=== PATIENT | male | born 1985 | race Caucasian/White ===

== ENCOUNTER 2021-01-29 09:52 | Emergency (ER) | payer OTHER, SELFPAY ==
[2021-01-29 09:53] VITALS: BP 143/83; PULSE 83; RESP 16; TEMP 35.4; O2SAT 100; BMI 23.6
[2021-01-29 10:16] VITALS: O2SAT 97
--- NOTE | 2021-01-29 10:16 | EKG12_ITS ---
Test Reason : CP Blood Pressure : / mmHG Vent. Rate : 067 BPM Atrial Rate : 067 BPM P-R Int : 130 ms QRS Dur : 106 ms QT Int : 370 ms P-R-T Axes : 078 063 069 degrees QTc Int : 390 ms Normal sinus rhythm with sinus arrhythmia Normal ECG Confirmed by KAMERON ROPER, ABRAHAN ([id number]), international editorial producer HILLARY KIM ([id number]) on 02/01/2021 10:49:09 AM Referred By: NADIRA Confirmed By:ABRAHAN MELO MD
--- NOTE | 2021-01-29 10:24 | RAD_ITS ---
STUDY: X-RAY CHEST REASON FOR EXAM: Male, 36 years old. Chest pain TECHNIQUE: Single AP portable view of the chest. COMPARISON: Comparison is made with prior study dated 09/11/2012. FINDINGS: EKG electrodes are seen. The lungs are clear and expanded. There is no demonstrated pleural abnormality. Normal size heart. Normal mediastinum and celia. Normal visualized pulmonary arteries. Normal visualized aortic arch and descending thoracic aorta. Normal visualized thoracic spine. Normal visualized ribs, clavicles, and shoulders. There is no demonstrated abnormality of the visualized soft tissue structures of the upper abdomen. RAD/Chest 1 View (Portable) IMPRESSION: Normal x-ray examination of the chest. Electronically Signed: Marv Arceo MD at 11:12 EST , Service support ,
[2021-01-29 10:27] LABS: Absolute Lymphocyte Count 1.58 X10^3/uL (0.83-4.51); Absolute Neutrophil Count 3.7 X10^3/uL (2.0-7.7); Basophil# 0.03 X10^3/uL; Basophil% 0.5 % (0-1); Eosinophils% 1.6 % (0-5); Hemoglobin 14.3 g/dL (13.0-16.5); Lymphocyte # 1.58 X10^3/ul (0.83-4.51); Lymphocyte % 25.5 % (19-41); Mean Corp Hgb Conc 34.9 g/dL (32-36); Mean Corpuscular Hgb 34.8 pg (27.0-32.0); Mean Corpuscular Volume 99.8 fL (80-94); Mean Platelet Vol. 9.8 fl (6.2-12.0); Monocyte# 0.78 X10^3/uL; Monocyte% 12.6 % (0-10); NRBC Flagged by Analyzer 0 % (0-5); Neutrophil # 3.69 X10^3/uL (2.7-7.7); Neutrophil % 59.5 % (47-70); Platelet Count 303 K/mm3 (150-450); RBC Distribution Width CV 12.3 % (11.6-14.6); RBC Distribution Width SD 45.5 fl (35.1-43.9); Red Blood Count 4.11 M/mm3 (4.6-6.2); White Blood Count 6.2 K/mm3 (4.4-11.0)
[2021-01-29 10:43] LABS: Anion Gap 5 (5-15); BUN 9 mg/dL (7-18); BUN/Creat Ratio 11.4 RATIO (10-20); Calcium,Total 9.1 mg/dL (8.5-10.1); Chloride 109 mmol/L (98-107); Creatinine, Serum 0.79 mg/dL (0.70-1.30); EST Glomerular Filtration Rate 118 mL/min (>60); Est Glom Filt Rate - Afr Amer 143 mL/min (>60); Estimated Creatinine Clearance 125.06 ml/min; Glucose 92 mg/dL (74-106); Potassium 4.2 mmol/L (3.5-5.1); Sodium Level 141 mmol/L (136-145); Troponin-I HS < 3 pg/mL (3.0-78.0)
--- NOTE | 2021-01-29 10:52 | EDS_ITS ---
HPI History of Present Illness Chief Complaint: Chest Other Narrative Narrative: 36-year-old male presenting with left-sided lower rib pain which has been constant for a week. He states it does hurt to touch. He states that he is not short of breath but when he takes a deep breath it hurts in the ribs. No cardiac history. No DVT/PE history and no risk factors. Patient states he has a very physical job, but he does not remember any point where he had direct trauma or something that made his chest wall hurt. He denies fever, chills. He admits to a cough but it has been 2 weeks. No body aches no loss of taste or smell. No nausea or vomiting. PFSH PFSH Medical History no medical history Home Medications hydrocodone-acetaminophen 1 tab PO Q4H PRN PRN #12 tablet 11/13/16 [Rx Last Taken Unknown] naproxen 500 mg PO BID #20 tab 11/13/16 [Rx Last Taken Unknown] penicillin V potassium 500 mg PO 4X/DAY #28 tab 11/13/16 [Rx Last Taken Unknown] lidocaine 1 patch TOPICAL DAILY PRN #1 ea 01/29/21 [Rx Last Taken Unknown] naproxen 500 mg PO BID PRN #20 tab 01/29/21 [Rx Last Taken Unknown] Allergy/AdvReac Type Severity Reaction Status Date / Time Sulfa (Sulfonamide Allergy Unknown Verified 01/29/21 09:55 Antibiotics) Social History Smoking Status: Current every day smoker tobacco type: cigarettes ROS ROS ED Constitutional Constitutional ED: Denies chills, fever(s) or sweats Eyes Eyes: Denies blurry vision or change in vision ENT ENT ED: Denies rhinorrhea or sore throat Cardiovascular Cardiovascular: Reports as per HPI Respiratory/Chest Respiratory/Chest: Denies cough or dyspnea Gastrointestinal Gastrointestinal: Denies abdominal pain or nausea Genitourinary Genitourinary ED: Denies dysuria or hematuria Musculoskeletal Musculoskeletal: Denies arthralgias, back pain, myalgias or neck pain Integumentary Denies abscess or rash Neurologic Neurologic: Denies headache(s), paresthesias or weakness Psychiatric Psychiatric: Denies anxiety or depression EXAM Physical Exam Const Vital Signs: 01/29/21 09:53 01/29/21 10:16 Temperature 95.7 F L Temperature Source Oral Pulse Rate 83 Respiratory Rate 16 Blood Pressure 143/83 H Blood Pressure Mean 103 Pulse Ox 100 97 Oxygen Delivery Method Room Air Room Air Positive well nourished General Appearance ED: NAD; Negative for pallor HEENT Reports moist mucous membranes normocephalic and atraumatic Eyes PERRL and EOMs intact bilaterally Neck no lymphadenopathy and supple Chest Wall Chest Narrative: Tenderness palpation of the left lower ribs in the anterior axillary line. No crepitance or deformity. Equal symmetric breath sounds and chest wall rise. Resp normal respiratory effort and clear to auscultation bilaterally Auscultation: Negative for rales, wheezes or diminished lung sounds Cardio regular rate and regular rhythm Extremity normal to inspection General Extremety ED: Negative for edema or tenderness General Extremity: Negative for edema Neuro oriented x3 Sensorium / Orientation: awake and alert Psych mental status grossly normal Skin no rashes or lesions noted General Skin Exam: Negative for jaundice or pallor Heart Score History: Slightly/Non-Suspicious ECG: Normal Age: </= 45 years Risk Factors: No Risk Factors Troponin: </= Normal Limit Score: 0 MDM MDM MDM Narrative Medical decision making narrative: Patient presenting with left lower chest wall pain which is been present for a week. He is EKG on my interpretation shows a normal sinus rhythm with a ventricular rate of 67 bpm without sign of ischemic change. CBC shows no leukocytosis. Hemoglobin hematocrit are stable. Renal f unction electrolytes are normal. High-sensitivity troponin is less than 3 and therefore rules him out for ACS since it has been ongoing for a week. Chest x- ray on my interpretation shows no acute cardiopulmonary process. The radiologist does agree. Patient is given Toradol and a Lidoderm patch for his left rib pain. He feels improved afterwards. Patient will be prescribed Naprosyn and Lidoderm patches for home. He is counseled to return if he has any new or worsening symptoms. He is given follow-up with Dr. Mora. Impression: 1. Chest pain noncardiac Lab Data Labs: Laboratory Results - last 24 hr 01/29/21 01/29/21 10:10 10:10 WBC 6.2 RBC 4.11 L Hgb 14.3 Hct 41.0 MCV 99.8 H MCH 34.8 H MCHC 34.9 RDW Std Deviation 45.5 H RDW Coeff of Almaz 12.3 Plt Count 303 MPV 9.8 Immature Gran % (Auto) 0.300 Neut % (Auto) 59.5 Lymph % (Auto) 25.5 [place] % (Auto) 12.6 H Eos % (Auto) 1.6 Baso % (Auto) 0.5 Absolute Neuts (auto) 3.7 Absolute Lymphs (auto) 1.58 Nucleated RBC % 0 Sodium 141 Potassium 4.2 Chloride 109 H Carbon Dioxide 27.0 Anion Gap 5 BUN 9 Creatinine 0.79 Estim Creat Clear Calc 125.06 Est GFR (MDRD) Af Amer 143 Est GFR (MDRD) Non-Af 118 BUN/Creatinine Ratio 11.4 Glucose 92 Calcium 9.1 Troponin I High Sens < 3 L Radiography Diagnostic Testing: Clinical Impression(s) from Imaging Studies Chest X-Ray 01/29/21 10:24 IMPRESSION: Normal x-ray examination of the chest. Electronically Signed: Marv Arceo MD at 11:12 EST , Service support , Discharge Plan Triage Chief Complaint: Chest Other ED Provider: Louis Ledezma Dx/Rx/DC Orders Instructions: ED Chest Pain, Noncardiac Prescriptions: New naproxen 500 mg tablet 500 mg PO BID PRN (Reason: pain) Qty: 20 RF: 0 lidocaine 5 % adhesive patch,medicated 1 patch topical DAILY PRN (Reason: pain) Qty: 1 RF: 0 No Action hydrocodone-acetaminophen 1 TABLET tablet 1 tab PO Q4H PRN PRN (Reason: Pain) Qty: 12 RF: 0 naproxen 500 MG tablet 500 mg PO BID Qty: 20 RF: 0 penicillin V potassium 500 MG tablet 500 mg PO 4X/DAY Qty: 28 RF: 0 Primary Care Provider: Care Physician,No Primary Referrals: Reynaldo Mora MD [STAFF PHYSICIAN] - As Needed Care Physician,No Primary [Primary Care Provider] - Disposition Disposition: Home, Self Care
[2021-01-29] MEDS: Ketorolac 15 MG/ML Vial IV (11:11)
[2021-01-29] MEDS: Lidocaine 5% Patch 1 PATCH TOPICAL (11:11)
[2021-01-29 11:38] VITALS: BP 127/85; PULSE 75; RESP 14; O2SAT 99
== END 2021-01-29 11:38 | disposition home or self-care (01) ==
PROVIDERS: Emergency Provider Student in an Organized Health Care Education/Training Program
DX: R07.89 Other chest pain (principal); F17.210 Nicotine dependence, cigarettes, uncomplicated; R05.9 Cough, unspecified; I49.8 Other specified cardiac arrhythmias; Z79.1 Long term (current) use of non-steroidal anti-inflammatories (NSAID)
CPT/HCPCS: 71045; 80048; 84484; 85025; 93005; 96374; 99285; A4216

== ENCOUNTER 2021-06-07 02:19 | Emergency (ER) | payer OTHER, SELFPAY ==
[2021-06-07 02:20] VITALS: BP 130/101; PULSE 88; RESP 26; TEMP 36.8; O2SAT 98; BMI 21.2
--- NOTE | 2021-06-07 02:25 | CT_ITS ---
STUDY: CT ABDOMEN AND PELVIS WITHOUT CONTRAST REASON FOR EXAM: Male, 36 years old. Kidney Stone RADIATION DOSAGE (If Supplied By Facility): CTDIvol = ( 5.54 ) mGy, DLP = ( 250.91 ) mGycm TECHNIQUE: Transaxial images were obtained from the dome of the diaphragm to the symphysis pubis without oral contrast, and without intravenous contrast. Sagittal and coronal images were reconstructed. Individualized dose optimization techniques were used for this CT. COMPARISON: Previous CT of 05/21/2014. FINDINGS: The visualized lung bases are unremarkable. The visualized portions of the heart are within normal limits. No coronary artery calcification is seen. Normal liver. Normal gallbladder and extrahepatic biliary system. Normal spleen. Normal pancreas. Normal bilateral adrenal glands. Right kidney is now asymmetrically enlarged and edematous with minimal perirenal stranding. Mild/moderate right hydronephrosis and hydroureter are present. A 2 mm stone is seen within the distal right ureter, just proximal to the UVJ. 2 punctate nonobstructing stones are seen within the left intrarenal collecting system on the coronal images. No left-sided hydronephrosis. Urinary bladder is nearly empty. Normal visualized stomach. Normal small intestine. Normal colon. The appendix is visualized and appears normal. Normal abdominal aorta. Normal inferior vena cava. Normal retroperitoneum. Normal urinary bladder. Prostate gland is not enlarged. Normal abdominal wall. No acute osseous abnormality. CT/Abdomen/Pelvis without Cont IMPRESSION: Mild-moderate right hydronephrosis due to a 2 mm stone within the distal ureter, just proximal to the UVJ. Electronically Signed: Walter Garcia MD at 3:32 EDT ,
--- NOTE | 2021-06-07 02:25 | EDS_ITS ---
HPI History of Present Illness Chief Complaint: Flank Pain Narrative Narrative: Patient presents with sudden onset of right-sided flank pain/back pain radiating towards the front and towards his testicle. He states his symptoms began at 5 PM yesterday approximately 9 hours ago. It was very faint at the time but has intensified since he went to bed at 11 PM. He denies any dysuria or hematuria. No fevers or chills. States he had nausea and vomiting from the pain without any blood in his emesis. He denies any problems with bowel movements. He felt similar to this previously approximately 10 years ago when he had a kidney stone. The pain is only on the right side and radiating towards the front and downward. He cannot find a comfortable position. He denies any exacerbating or alleviating factors. PFSH PFSH Home Medications hydrocodone-acetaminophen 1 tab PO Q6H PRN 3 Days #12 tab 06/07/21 [Rx Last Taken Unknown] ketorolac 10 mg PO TID 5 Days #15 tab 06/07/21 [Rx Last Taken Unknown] tamsulosin [Flomax] 0.4 mg PO QHS #10 cap 06/07/21 [Rx Last Taken Unknown] Allergy/AdvReac Type Severity Reaction Status Date / Time Sulfa (Sulfonamide Allergy Unknown Verified 01/29/21 09:55 Antibiotics) Social History Smoking Status: Current every day smoker tobacco type: cigarettes ROS ROS ED ROS Narrative Constitutional: No fever, no chills. HEENT: No sore throat. No neck pain. No loss of vision. No rhinorrhea. Cardiovascular: No chest pain. No palpitations. No pedal edema. Respiratory: No cough, no shortness of breath. Abdominal: No abdominal pain. No nausea. No vomiting. Genitourinary: No dysuria. No hematuria. Right-sided flank pain with radiation to front and minimally towards testicle. Feels similar to previous kidney stones. Musculoskeletal: No myalgias. No arthralgias. Neurologic: No headaches. No dizziness. No lightheadedness. Skin: No rash. No change in color. Psychiatric: No depression. No anxiety. EXAM Physical Exam Narrative Exam Narrative: Afebrile. Vital signs noted. HEENT: Normocephalic. Atraumatic. PERRL, EOMI. Neck soft and supple. No point tenderness or step off. Cardiovascular: Regular rate and rhythm. No murmurs, rubs, or gallops a ppreciated. Respiratory: No tachypnea. Lungs clear to auscultation bilaterally. Gastrointestinal: Abdomen soft, nontender, with normoactive bowel sounds. No rebound or guarding. No CVA tenderness to percussion. Neurological: Awake. Alert. Nonfocal, nonlateralizing. Skin: No rash. Normal color. No pallor. Musculoskeletal: No pedal edema. Full range of motion extremities. Const Vital Signs: 06/07/21 02:20 06/07/21 03:44 Temperature 98.2 F Temperature Source Temporal Pulse Rate 88 72 Respiratory Rate 26 H 15 Blood Pressure 130/101 H 120/78 Blood Pressure Mean 110 Pulse Ox 98 98 Oxygen Delivery Method Room Air MDM MDM MDM Narrative Medical decision making narrative: Kidney stone work-up was pursued. He was administered normal saline along with ketorolac 30 mg intravenously. He did drive his young, small 2 children here to the emergency department. However, he states he will get a ride home. He was administered morphine 4 mg intravenously. He has slightly elevated white count at 12.3 which I think is nonspecific. Hemoglobin normal at 13.2. Platelet count normal at 310. Sodium low at 131. He was bolused normal saline. Creatinine normal at 1.0. Urinalysis shows occult blood 250 along with RBCs 25-50 but WBCs 0-5, within normal limits. I do not feel antibiotics are indicated. CT of the abdomen and pelvis does show mild to moderate hydronephrosis of the right kidney secondary to a 2 mm stone that is almost at the UVJ. At this point in time, I feel he can be discharged safely home with follow-up to urology. He was returned to Dr. Ledezma. He was given prescriptions for 3 days of Vicodin, for 5 days worth of Toradol, and for Flomax. Return instructions to the emergency department were reviewed. Disposition is discharged home in stable condition. Lab Data Attestation: I reviewed the patient's lab results. Labs: Laboratory Results - last 24 hr 06/07/21 06/07/21 06/07/21 02:25 02:25 02:35 WBC 12.3 H RBC 3.80 L Hgb 13.2 Hct 38.0 L MCV 100.0 H MCH 34.7 H MCHC 34.7 RDW Std Deviation 42.9 RDW Coeff of Almaz 11.7 Plt Count 310 MPV 9.5 Immature Gran % (Auto) 0.300 Neut % (Auto) 57.0 Lymph % (Auto) 29.0 [place] % (Auto) 11.1 H Eos % (Auto) 2.2 Baso % (Auto) 0.4 Absolute Neuts (auto) 7.0 Absolute Lymphs (auto) 3.55 Nucleated RBC % 0 Sodium 131 L Potassium 3.8 Chloride 99 Carbon Dioxide 24.0 Anion Gap 8 BUN 15 Creatinine 1.02 Estim Creat Clear Calc 95.16 Est GFR (MDRD) Af Amer 106 Est GFR (MDRD) Non-Af 88 BUN/Creatinine Ratio 14.7 Glucose 110 H Calcium 8.4 L Urine Color Yellow Urine Clarity Sl Cloudy Urine pH 5.0 Ur Specific [place] 1.025 Urine Protein 30 H Urine Glucose (UA) Normal Urine Ketones 5 H Urine Occult Blood 250 H Urine Nitrite Negative Urine Bilirubin 1 H Urine Urobilinogen 4 H Ur Leukocyte Esterase 25 H Urine RBC 25-50 SEEN Urine WBC 0-5 SEEN Ur Squamous Epith Cells 0 SEEN Urine Bacteria 1+ Urine Mucus 0 SEEN Radiography Diagnostic Testing: Clinical Impression(s) from Imaging Studies Abdomen/Pelvis CT 06/07/21 02:25 IMPRESSION: Mild-moderate right hydronephrosis due to a 2 mm stone within the distal ureter, just proximal to the UVJ. Electronically Signed: Walter Garcia MD at 3:32 EDT , Discharge Plan Triage Chief Complaint: Flank Pain ED Provider: Guillermo Wagner Dx/Rx/DC Orders Clinical Impression: Ureterolithiasis, Ureteral colic Instructions: ED Kidney Stone w/ Colic Prescriptions: New ketorolac 10 mg tablet 10 mg PO TID 5 Days Qty: 15 RF: 0 tamsulosin [Flomax] 0.4 mg capsule 0.4 mg PO QHS Qty: 10 RF: 0 hydrocodone-acetaminophen 5-325 mg tablet 1 tab PO Q6H PRN (Reason: pain) 3 Days Qty: 12 RF: 0 Primary Care Provider: Care Physician,No Primary Referrals: David Ledezma MD [STAFF PHYSICIAN] - 3-5 Days if not improving Care Physician,No Primary [Primary Care Provider] - Disposition Disposition: Home, Self Care
[2021-06-07] MEDS: Ketorolac 30 MG/ML Syringe IV (02:29)
[2021-06-07] MEDS: 0.9% Normal Saline 1,000 ML 250 ML IV (02:30)
[2021-06-07 02:32] LABS: Absolute Lymphocyte Count 3.55 X10^3/uL (0.83-4.51); Basophil# 0.05 X10^3/uL; Basophil% 0.4 % (0-1); Eosinophil# 0.27 X10^3/uL; Eosinophils% 2.2 % (0-5); Hemoglobin 13.2 g/dL (13.0-16.5); Lymphocyte # 3.55 X10^3/ul (0.83-4.51); Mean Corp Hgb Conc 34.7 g/dL (32-36); Mean Corpuscular Hgb 34.7 pg (27.0-32.0); Mean Platelet Vol. 9.5 fl (6.2-12.0); Monocyte# 1.36 X10^3/uL; Monocyte% 11.1 % (0-10); NRBC Flagged by Analyzer 0 % (0-5); Neutrophil # 6.99 X10^3/uL (2.7-7.7); Platelet Count 310 K/mm3 (150-450); RBC Distribution Width CV 11.7 % (11.6-14.6); RBC Distribution Width SD 42.9 fl (35.1-43.9); White Blood Count 12.3 K/mm3 (4.4-11.0)
[2021-06-07 02:37] LABS: Mucous, Urine 0 SEEN /hpf (<or=2+); Squamous Epithelial Cells - UA 0 SEEN /hpf (0-5)
[2021-06-07 02:38] LABS: Glucose, Dipstick Normal (Normal); Ketone-Dipstick 5 mg/dl (Negative); Leukocyte Esterase-Dipstick 25 /ul (Negative); Nitrite-Dipstick Negative (Negative); Occult Blood-Urine 250 /ul (Negative); Protein-Dipstick 30 mg/dl (Negative); Specific Gravity, Urine 1.025 (1.002-1.030); Urine Urobilinogen 4 mg/dl (Normal)
[2021-06-07 02:39] LABS: Color, Urine Yellow (Yellow); Urine Bilirubin Dipstick 1 mg/dL (Negative); Urine Clarity Sl Cloudy (Clear)
[2021-06-07 02:45] LABS: Anion Gap 8 (5-15); BUN 15 mg/dL (7-18); BUN/Creat Ratio 14.7 RATIO (10-20); Calcium,Total 8.4 mg/dL (8.5-10.1); Chloride 99 mmol/L (98-107); Creatinine, Serum 1.02 mg/dL (0.70-1.30); EST Glomerular Filtration Rate 88 mL/min (>60); Est Glom Filt Rate - Afr Amer 106 mL/min (>60); Estimated Creatinine Clearance 95.16 ml/min; Glucose 110 mg/dL (74-106); Potassium 3.8 mmol/L (3.5-5.1); Sodium Level 131 mmol/L (136-145)
[2021-06-07 02:46] LABS: Bacteria 1+ /hpf (None Seen); Red Blood Cells-Urine 25-50 SEEN /hpf (0-5); White Blood Cells 0-5 SEEN /hpf (0-5)
[2021-06-07] MEDS: Morphine 4 MG/ML Syringe IV (02:53)
[2021-06-07 03:44] VITALS: BP 120/78; PULSE 72; RESP 15; O2SAT 98
== END 2021-06-07 06:37 | disposition home or self-care (01) ==
PROVIDERS: Emergency Provider Emergency Medicine; Visit Provider Emergency Medicine
DX: N13.2 Hydronephrosis with renal and ureteral calculous obstruction (principal); N23 Unspecified renal colic; F17.210 Nicotine dependence, cigarettes, uncomplicated
CPT/HCPCS: 74176; 80048; 81001; 85025; 96361; 96374; 96375; 99282; A4216

== ENCOUNTER → 2021-07-09 | Outpatient (CLI) | payer OTHER, SELFPAY | END | disposition home or self-care (01) | LOC: LAB 15:20 | PROVIDERS: Referring Provider Otolaryngology; Visit Provider Otolaryngology | DX: J03.90 Acute tonsillitis, unspecified (principal) | CPT/HCPCS: 87070; 87077 ==

== ENCOUNTER 2022-02-13 18:44 | Emergency (ER) | payer OTHER, SELFPAY ==
[2022-02-13 18:45] VITALS: BP 131/85; PULSE 97; RESP 16; TEMP 36.6; O2SAT 97; BMI 21.1
--- NOTE | 2022-02-13 18:53 | ED.RN ---
FINISHED TRIAGING PT, EXPLAINED THAT THERE WOULD BE A WAIT AND APOLOGIZED. PT STATED I SUPPOSE THERE ARE PEOPLE HERE WITH JUST TOOTHACHES THAT DONT NEED TO BE HERE. PT WENT TO WAITING ROOM BEGAN HARASSING PT'S IN THE WAITING ROOM STATED I NEED TO GO HEAD OF YOU, MY ARM FEELS LIKE ITS GOING TO FALL OFF. PT CONTINUED TO HARASS PT'S AND THERE VISITORS, THIS RN APOLOGIZED FOR THE WAIT BUT EXPLAINED THAT THERE WERE MANY SICK PEOPLE HERE. PT CUSSING AND YELLING AT THIS RN, APOLOGIZED THEY WALKED OUT. THIS RN DID HRO TO INTERVENE.
== END 2022-02-13 18:50 | disposition left against medical advice (07) ==
LOC: ED 19:09
DX: Z53.21 Procedure and treatment not carried out due to patient leaving prior to being seen by health care provider (principal)

== ENCOUNTER 2023-04-03 15:27 | Emergency (ER) | payer SELFPAY ==
[2023-04-03 15:30] VITALS: BP 118/87; PULSE 97; RESP 14; TEMP 36.9; O2SAT 99; BMI 21.9
[2023-04-03] MEDS: Lidocaine 1% (20 ml mdv) 20 ML Vial INFILT (16:34)
--- NOTE | 2023-04-03 17:10 | EDS_ITS ---
HPI History of Present Illness Chief Complaint: Weakness Detail of Chief Complaint: Infection posterior left thigh that started several days ago Informant: patient Onset/Context/Timing Onset: Days Context: Sudden Onset Timing: Continuous Quality: Pain, redness and swelling Location: Posterior proximal left thigh Current Severity: Mild Maximum Severity: Moderate Worsened by: Sitting Relieved by: Nothing Associated Symptoms Associated Symptoms: No constitutional symptoms Narrative Narrative: patient is a 38-year-old male who presents with abscess and cellulitis. He went to urgent care. The practitioner at urgent care with no hot treat his infection. He was referred to the emergency department. He denies fever, chills night sweats. [place] history medic fever, heart murmur mitral valve prolapse. He is not on any immunosuppressive meds. He has no allergies to penicillin or doxycycline. He does report reaction to sulfa. Prior similar symptoms: No Recent Illness/Hospitalization: No PFSH PFSH Home Medications hydrocodone-acetaminophen 5-325mg 5mg-325mg 1 tab PO Q6H PRN pain 3 days #12 tabs 06/07/21 [Rx Last Taken Unknown] ketorolac 10 mg tablet 10 mg PO TID pain 5 days #15 tabs 06/07/21 [Rx Last Taken Unknown] tamsulosin 0.4 mg capsule (Flomax) 0.4 mg PO QHS #10 caps 06/07/21 [Rx Last Taken Unknown] Allergy/AdvReac Type Severity Reaction Status Date / Time Sulfa (Sulfonamide Allergy Unknown Verified 04/03/23 15:28 Antibiotics) Social History Smoking Status: Current every day smoker tobacco type: cigarettes ROS ROS ED Constitutional Constitutional ED: Denies chills, fever(s), subjective, sweats or weight loss Eyes Eyes: Denies blurry vision, change in vision or diplopia ENT ENT ED: Denies ear pain, rhinorrhea or sore throat Cardiovascular Cardiovascular: Denies chest pain or palpitations Respiratory/Chest Respiratory/Chest: Denies cough, dyspnea or dyspnea on exertion Integumentary Reports abscess Neurologic Neurologic: Denies paresthesias or weakness Psychiatric Psychiatric: Denies anxiety or depression Hematologic/Lymphatic Hematologic/Lymphatic: Reports systems reviewed and no addt'l complaints, except as documented EXAM Physical Exam Const Vital Signs: 04/03/23 15:30 04/03/23 16:36 Temperature 98.5 F Temperature Source Oral Pulse Rate 97 Respiratory Rate 14 Respiratory Effort Normal Non-Labored Respiratory Pattern Normal Blood Pressure 118/87 H Blood Pressure Mean 97 Pulse Ox 99 Oxygen Delivery Method Room Air Positive well nourished and well developed General Appearance ED: well developed and NAD; Negative for pallor HEENT Reports moist mucous membranes HEENT Narrative: Head is atraumatic and normocephalic. Ears normal. Nares patent. Posterior pharynx is normal. Eyes PERRL General Eye ED: Negative for pale conjunctiva or scleral icterus Neck no lymphadenopathy, supple and no JVD Chest Wall inspection of chest normal and palpation of chest normal Resp normal respiratory effort and clear to auscultation bilaterally Cardio regular rate, regular rhythm, S1 normal heart sound, S2 normal heart sound and no murmurs Back/Spine no CVA tenderness Extremity Negative for normal to inspection Extremity Narrative: Patient has an area of fluctuance the size of a quarter posterior proximal thigh near the buttocks crease. There is also surrounding cellulitis 5-7 and half centimeters. It is elliptical in size. Patient will need I&D. He was told he would need an I&D. He ate 1 to 2 hours prior to presentation. Neuro oriented x3, CN's II-XII intact bilaterally and no sensory deficits noted Sensorium / Orientation: alert Motor Exam: strength 5/5 throughout Psych mental status grossly normal Skin No no rashes or lesions noted, no wounds and skin turgor normal General Skin Exam: Negative for jaundice or pallor MDM MDM MDM Narrative Medical decision making narrative: Patient has subcutaneous abscess with surrounding cellulitis. Patient will need an I&D.'s patient's vitals are normal. Laboratory studies are not indicated. Procedures Other Procedures Procedure(s): Patient was prepped draped sterile manner. Area anesthetized by local infiltration and field block. Incision was made using a 10 blade. 2 cm incision. There is FreeFlow purulent material. There was additional purulent material with blunt dissection. Approximately 1 tablespoon of pus. Cavity was irrigated. Wick was placed. Patient received dose of pain medicine and antibiotic in the Emergency Department. He is discharged with prescription for doxycycline since he has allergy to sulfa. There is concern that this may represent MRSA. Discharge Plan Triage Chief Complaint: Weakness Other Complaint: Abscess ED Provider: Jose Sanon Dx/Rx/DC Orders Clinical Impression: Cellulitis and abscess of lower extremity, Abscess or cellulitis of thigh Instructions: ED Abscess Incision And Drainage Prescriptions: No Action ketorolac 10 mg tablet 10 mg PO TID 5 Days Qty: 15 0RF tamsulosin [Flomax] 0.4 mg capsule 0.4 mg PO QHS Qty: 10 0RF hydrocodone-acetaminophen 5-325 mg tablet 1 tab PO Q6H PRN (Reason: pain) 3 Days Qty: 12 0RF Primary Care Provider: Care Physician,No Primary Referrals: Erica Alcantara MD [Med Staff - Graphic Arts Technician] - 2 Days for wound check Care Physician,No Primary [Primary Care Provider] - Activity Restrictions/Additional Instructions: Follow-up with Dr. Soares to have wound inspected and wick removed in 2 days. Take medication as prescribed. Disposition Disposition: Home, Self Care
[2023-04-03] MEDS: HYDROcodone Bitartrate/Apap 5/325 Tablet PO (18:51)
[2023-04-03] MEDS: Naproxen 250 MG Tablet 500 MG PO (18:51)
[2023-04-03] MEDS: Doxycycline 100 MG CAPSULE PO (18:51)
== END 2023-04-03 18:59 | disposition home or self-care (01) ==
PROVIDERS: Emergency Provider Emergency Medicine; Visit Provider Emergency Medicine
DX: L02.416 Cutaneous abscess of left lower limb (principal); F17.210 Nicotine dependence, cigarettes, uncomplicated; L03.116 Cellulitis of left lower limb
CPT/HCPCS: 10060; 99284